=== PATIENT | female | born 1945 | race Caucasian/White ===

== ENCOUNTER 2016-04-30 00:42 | Emergency (ER) | payer OTHER ==
[~2016-04-30] VITALS: Ht 157.5 cm; Wt 66.7 kg
[~2016-04-30 00:42] MED LIST: METOPROLOL TART50 MG PO; NORVASC 5MG TAB5 MG PO; ZETIA10 MG PO
--- NOTE | 2016-04-30 00:55 | ED GENERAL ADULT ---
History of Present Illness General Chief Complaint: General Adult Stated Complaint: HYPERTENSIVE AND IRREGULAR HEARTBEAT Source: patient, old records Exam Limitations: no limitations Vital Signs & Intake/Output Vital Signs & Intake/Output Vital Signs Date Time Temp Pulse Resp B/P Pulse O2 O2 Flow FiO2 Ox Delivery Rate 04/30 0319 97.1 60 18 144/66 100 Room Air 04/30 0051 97.3 67 18 192/88 100 Room Air Allergies Coded Allergies: NO KNOWN ALLERGIES (01/06/14) Reconcile Medications Amlodipine (Norvasc 5MG Tab) 5 MG TABLET 1 TAB PO DAILY BP (Reported) Ezetimibe (Zetia) 10 MG TAB 1 TAB PO DAILY BP (Reported) Metoprolol Tartrate 50 MG TABLET 1 TAB PO BID BP (Reported) Triage Note: PT FROM HOME C/O PALPALTIONS/CP/HTN. PT STATES AROUND 1600 TODAY PT FELT PALPATATIONS. PT CALLED [facility] OR [facility] [employer] [employer] AND DIDNT GET A CALL BACK, PALPATATIONS RESOLVED AND PT WENT TO BED. PT AWOKE AROUND 0000 AND PT STATES SHE FELT PALPATATIONS AGO. PT TO 3 FOR EKG, AWAITING PROVIDER EVAL. Triage Nurses Notes Reviewed? yes HPI: Patient presents for evaluation of heart palpitations that began about 4:00 this afternoon. Patient denies any associated chest pain or shortness of breath. Symptoms seemed to improve but then got worse again prior to arrival. She has had heart palpitations in the past. Past History Travel History Traveled to [place] past 21 day No Medical History Any Pertinent Medical History? see below for history Cardiovascular: hypertension, hyperlipidemia Other Medical Hx: Superficial phlebitis Surgical History Surgical History: non-contributory Psychosocial History What is your primary language Turkmen Tobacco Use: Never used ETOH Use: occasional use Illicit Drug Use: denies illicit drug use Family History Hx Contributory? No Review of Systems Review of Systems Constitutional: Reports: no symptoms. EENTM: Reports: no symptoms. Respiratory: Reports: no symptoms. Cardiovascular: Reports: see HPI. GI: Reports: no symptoms. Genitourinary: Reports: no symptoms. Musculoskeletal: Reports: no symptoms. Skin: Reports: no symptoms. Neurological/Psychological: Reports: no symptoms. Hematologic/Endocrine: Reports: no symptoms. Immunologic/Allergic: Reports: no symptoms. All Other Systems: Reviewed and Negative Physical Exam Physical Exam General Appearance: SEE BELOW Comments: Gen.: Well-nourished, well-developed, no acute respiratory distress. Head: Normocephalic, atraumatic. Eyes: Normal inspection bilaterally Ears: Normal inspection bilaterally Nose: Normal inspection Throat/mouth : Moist mucosa Neck: Supple, full range of motion, no goiter Heart: IRRegular rate and rhythm, no murmurs rubs or gallops Lungs: Clear to auscultation bilaterally with normal air entry Chest: Nontender Back: Normal range of motion Abdomen: Soft, nontender, nondistended, normal bowel sounds Extremities: Normal range of motion grossly, equal radial pulses, no cyanosis, 2 -3+ bilateral pitting edema of the lower extremities Neurologic: Cranial nerves grossly intact, speech is clear Skin: warm and dry Psychiatric: Calm, cooperative, no apparent delusions or hallucinations Core Measures ACS in differential dx? No CVA/TIA Diagnosis: No Severe Sepsis Present: No Septic Shock Present: No Progress Differential Diagnoses I considered the following diagnoses in my evaluation of the patient: Hypertension, atrial fibrillation, sinus tachycardia Plan of Care: Orders Procedure Date/time Status Telemetry/Filer Metal Patterns 04/30 0322 Active THYROID STIMULATING HORMONE 04/30 0128 Complete MAGNESIUM 04/30 0128 Complete CBC WITHOUT DIFFERENTIAL 04/308 Complete BASIC METABOLIC PANEL 04/30 127 Complete EKG 04/30 0044 Active Laboratory Tests 04/30/16 0130: Anion Gap 11, Estimated GFR > 60, BUN/Creatinine Ratio 30.0 H, Glucose 98, Calcium 10.4 H, Magnesium 1.9, TSH 5.570 H, CBC w Diff NO MAN DIFF REQ, RBC 5.70 H, MCV 85.6, MCH 30.1, RDW 14.3, MPV 8.2, Gran % 69.0, Lymphocytes % 22.9, Monocytes % 4.7, Eosinophils % 2.8, Basophils % 0.6, Absolute Granulocytes 4.3, Absolute Lymphocytes 1.4, Absolute Monocytes 0.3, Absolute Eosinophils 0.2, Absolute Basophils 0, PUBS MCHC 35.2 Initial ED EKG: NSR, rate (67), LVH Prior EKG: unchanged Comments: 04/30/2016 3:21:08 AM I have updated Fermin on her test results. She feels well and has no complaint at this time. Her blood pressure has improved substantially. There are no PACs on the monitor at this time. 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 Departure Departure Disposition: HOME OR SELF CARE Condition: Stable Clinical Impression Primary Impression: Hypertension Qualifiers: Hypertension type: essential hypertension Qualified Code: I10 - Essential (primary) hypertension Secondary Impressions: PAC (premature atrial contraction) Referrals: Niesha AG MD (PCP/Family) Departure Forms: Customer Survey General Discharge Information Critical Care Note Critical Care Note Critical Care Time: non-applicable
[2016-04-30 01:37] LABS: ABSOLUTE BASOPHIL COUNT 0 /CUMM (0.0-0.2); ABSOLUTE EOSINOPHIL COUNT 0.2 /CUMM (0.0-0.7); ABSOLUTE GRANULOCYTE CT 4.3 /CUMM (1.4-6.5); ABSOLUTE LYMPH COUNT 1.4 /CUMM (1.2-3.4); ABSOLUTE MONOCYTE COUNT 0.3 /CUMM (0.10-0.60); BASOPHIL % 0.6 % (0.0-2.0); EOSINOPHIL % 2.8 % (0-5); HEMATOCRIT 48.8 % (37-47); MEAN CORPUSCULAR HGB 30.1 PG (27.0-31.0); MEAN CORPUSCULAR HGB CONC 35.2 G/DL (33.0-37.0); MEAN CORPUSCULAR VOLUME 85.6 FL (81.0-99.0); MEAN PLATELET VOLUME 8.2 FL (7.4-10.4); PLATELET COUNT 543 /CUMM (130-400); RBC DISTRIBUTION WIDTH 14.3 % (11.5-14.5); WHITE BLOOD CELL COUNT 6.3 /CUMM (4.8-10.8)
[2016-04-30 03:19] VITALS: BP 144/66
== END 2016-04-30 03:34 ==
LOC: ERH 00:42
PROVIDERS: Emergency Medicine
DX: I10 Essential (primary) hypertension (principal); I49.1 Atrial premature depolarization
CPT/HCPCS: 93005; 93010

== ENCOUNTER 2017-08-03 11:53 | Emergency (ER) | payer OTHER ==
[~2017-08-03] VITALS: Ht 157.5 cm; Wt 65.3 kg
[~2017-08-03 11:53] MED LIST changes: +LOPRESSOR50 M1 PO; -METOPROLOL TART50 MG PO; -NORVASC 5MG TAB5 MG PO; +NORVASC5 M1 PO; +ZETIA10 M1 PO; -ZETIA10 MG PO
[2017-08-03 12:17] LABS: ABSOLUTE BASOPHIL COUNT 0 /CUMM (0.0-0.2); ABSOLUTE EOSINOPHIL COUNT 0.1 /CUMM (0.0-0.7); ABSOLUTE GRANULOCYTE CT 7.2 /CUMM (1.4-6.5); ABSOLUTE LYMPH COUNT 0.6 /CUMM (1.2-3.4); ABSOLUTE MONOCYTE COUNT 0.5 /CUMM (0.10-0.60); BASOPHIL % 0.4 % (0.0-2.0); EOSINOPHIL % 1.7 % (0-5); HEMATOCRIT 48.2 % (37-47); MEAN CORPUSCULAR HGB 28.4 PG (27.0-31.0); MEAN CORPUSCULAR HGB CONC 33.1 G/DL (33.0-37.0); MEAN CORPUSCULAR VOLUME 85.9 FL (81.0-99.0); MEAN PLATELET VOLUME 8.1 FL (7.4-10.4); RBC DISTRIBUTION WIDTH 14.9 % (11.5-14.5); WHITE BLOOD CELL COUNT 8.5 /CUMM (4.8-10.8)
[2017-08-03 12:36] LABS: GRANULOCYTE % 84.9 % (42.2-75.2); PLATELET COUNT 525 /CUMM (130-400)
--- NOTE | 2017-08-03 12:38 | ED GI/GU/ABDOMINAL COMPLAINT ---
History of Present Illness General Chief Complaint: General Adult Stated Complaint: PER PT BLOODY STOOLS Source: patient Exam Limitations: no limitations Vital Signs & Intake/Output Vital Signs & Intake/Output Vital Signs Date Time Temp Pulse Resp B/P B/P Pulse O2 O2 Flow FiO2 Mean Ox Delivery Rate 08/03 1510 97.5 74 18 154/70 97 Room Air Room Air 08/03 1408 97.4 75 18 157/64 97 Room Air Room Air 08/03 1155 97.8 71 18 173/71 96 Room Air Allergies Coded Allergies: NO KNOWN ALLERGIES (NONE 01/12/17) Reconcile Medications Amlodipine Besylate (Norvasc) 5 MG TABLET 1 TAB PO 1500 BP (Reported) Ciprofloxacin HCl 500 MG TABLET 1 TAB PO BID Colitis Ezetimibe (Zetia) 10 MG TABLET 1 TAB PO QPM CHOLESTEROL (Reported) Metoprolol Tartrate (Lopressor) 50 MG TABLET 1 TAB PO BID BP (Reported) Metronidazole (Flagyl) 500 MG TABLET 1 TAB PO TID Colitis Triage Note: 72 Y/O FEMALE C/O DIARRHEA OVERNIGHT AND BLOODY STOOLS THIS MORNING. REPORTS INTERMITTENT ABDOMINAL CRAMPING. DENIES N/V BUT FEELS "QUEASEY". IS NOT ON ANY BLOOD THINNERS TAKEN FOR BLOOD DRAW Triage Nurses Notes Reviewed? yes ? N Is pt currently ? No HPI: 72-year-old female presents to emergency department complaining of abdominal cramping since early this morning. She had multiple episodes of watery diarrhea around 2 AM. She woke up again at 5 AM this morning with more abdominal cramping and diarrhea. She also noticed bright red blood in her stool. Patient states it looked mucousy. Reports she has had a history of this in the past, unsure of her diagnosis at that time. She has a history of diverticulosis. States her belly is not particularly painful just feels crampy. Her only previous abdominal surgery was a stone removal at the [facility] over 20 years ago. Denies any nausea or vomiting. No chest pain or shortness of breath. No recent fever or chills. She has been eating normally. No hematuria or dysuria. (Steven SIMMS,Myke) Past History Travel History Traveled to [place] past 21 day No Medical History Any Pertinent Medical History? see below for history Neurological: NONE EENT: NONE Cardiovascular: hypertension, hyperlipidemia, "MAYBE PAC'S" Respiratory: NONE Gastrointestinal: NONE Hepatic: NONE Renal: NONE Musculoskeletal: NONE Psychiatric: NONE Endocrine: NONE Blood Disorders: NONE Cancer(s): NONE Other Medical Hx: Superficial phlebitis Surgical History Surgical History: non-contributory Psychosocial History What is your primary language Swedish Tobacco Use: Never used Family History Hx Contributory? No (Myke Harris PA-C) Review of Systems Review of Systems Constitutional: Reports: no symptoms. EENTM: Reports: no symptoms. Respiratory: Reports: no symptoms. Cardiovascular: Reports: no symptoms. GI: Reports: see HPI, abdominal pain, bloating, diarrhea, bloody stool. Denies: constipation, nausea, vomiting. Genitourinary: Reports: no symptoms. Musculoskeletal: Reports: no symptoms. Skin: Reports: no symptoms. Neurological/Psychological: Reports: no symptoms. Hematologic/Endocrine: Reports: no symptoms. Immunologic/Allergic: Reports: no symptoms. All Other Systems: Reviewed and Negative (Myke Harris PA-C) Physical Exam Physical Exam General Appearance: well developed/nourished, no apparent distress, alert, awake Head: atraumatic, normal appearance Eyes: Bilateral: normal appearance, PERRL, EOMI. Ears, Nose, Throat, Mouth: hearing grossly normal, moist mucous membrane Neck: normal inspection, supple, full range of motion Respiratory: normal breath sounds, chest non-tender, no respiratory distress, lungs clear Cardiovascular: regular rate/rhythm Gastrointestinal: BS normal, Abdomen is soft and non tender, non distended. No masses or organomegaly. Extremities: normal range of motion Neurologic/Psych: no motor/sensory deficits, awake, alert, oriented x 3, normal gait Skin: intact Core Measures ACS in differential dx? No Sepsis Present: No Sepsis Focused Exam Completed? No (Myke Harris PA-C) Progress Differential Diagnosis: AAA, appendicitis, bowel obstruction, diverticulitis, hemorrhoids, ischemic bowel, inflamm bowel dis, kidney stone, SBO, UTI/pyelo Plan of Care: Orders Procedure Date/time Status CULTURE,STOOL 08/03 1442 Active C.DIFFICILE 08/03 1442 Active Add-on Test (ER Only) 08/03 1240 Active URINALYSIS 08/03 1233 Complete LIPASE 08/03 1200 Complete LACTIC ACID 08/03 1157 Complete COMPREHENSIVE METABOLIC PANEL 08/03 1157 Complete CBC WITHOUT DIFFERENTIAL 08/03 1157 Complete Laboratory Tests 08/03/17 1457: Lactic Acid Cancelled 08/03/17 1343: Urine Color YEL, Urine Clarity CLEAR, Urine pH 6.5, Ur Specific [place] <= 1.005 , Urine Protein NEG, Urine Ketones NEG, Urine Nitrite NEG, Urine Bilirubin NEG, Urine Urobilinogen 0.2, Ur Leukocyte Esterase TRACE H, Ur Microscopic SEDIMENT EXAMINED, Urine RBC 1-3, Urine WBC 1-3 H, Hyaline Casts RARE H, Urine Hemoglobin NEG, Urine Glucose NEG 08/03/17 1233: Lipase Cancelled 08/03/17 1200: Anion Gap 9, Estimated GFR > 60, BUN/Creatinine Ratio 18.6, Glucose 105 H, Lactic Acid 0.8, Calcium 9.8, Total Bilirubin 0.7, AST 29, ALT 31, Alkaline Phosphatase 69, Total Protein 7.2, Albumin 4.3, Globulin 2.9, Albumin/Globulin Ratio 1.5, Lipase 37, CBC w Diff NO MAN DIFF REQ, RBC 5.60 H, MCV 85.9, MCH 28.4, MCHC 33.1, RDW 14.9 H, MPV 8.1, Gran % 84.9 H, Lymphocytes % 7.2 L, Monocytes % 5.8, Eosinophils % 1.7, Basophils % 0.4, Absolute Granulocytes 7.2 H, Absolute Lymphocytes 0.6 L, Absolute Monocytes 0.5, Absolute Eosinophils 0.1 , Absolute Basophils 0 Microbiology 08/03 144 STOOL: Clostridium difficile Toxin A & B - ORD 08/03 144 STOOL: Stool Culture - ORD Diagnostic Imaging: Viewed by Me: CT Scan. Discussed w/RAD: CT Scan. Radiology Impression: PATIENT: ROXY PASTOR PRESENT AGE: 72 PATIENT ACCOUNT NO: [id number] : 43 LOCATION: [facility] ORDERING PHYSICIAN: Myke Harris PA-C SERVICE DATE: 08/03/17 EXAM TYPE: CAT - CT ABD & PELVIS W IV CONTRAST EXAMINATION: CT ABDOMEN AND PELVIS WITH CONTRAST CLINICAL INFORMATION: Lower abdominal pain, cramping, diarrhea and blood in stool. COMPARISON: Previous CT June 2011. TECHNIQUE: Multidetector volumetric imaging was performed of the abdomen and pelvis following IV administration of 95 mL of Optiray 320 intravenous contrast. Sagittal and coronal reformatted images were obtained on the technologist's workstation. DLP: 272 mGy-cm FINDINGS : LUNG BASES: The visualized lung bases are unremarkable. LIVER, GALLBLADDER, AND BILIARY TREE: The liver is normal in size, shape, and attenuation. No focal hepatic lesion or biliary ductal dilatation is present. The gallbladder is unremarkable with no evidence of radiopaque gallstones, gallbladder wall thickening, or obvious pericholecystic inflammatory changes. PANCREAS: Unremarkable. SPLEEN: Unremarkable. ADRENAL GLANDS: Unremarkable. KIDNEYS AND URETERS: The left kidney is slightly small with renal cortical thinning. There is mild left hydronephrosis. There are 2 left renal cysts, largest measuring 2 cm in the lower pole. This is unchanged from previous exam. No left ureteral dilatation is seen. The right kidney is normal-appearing. BLADDER: Unremarkable. GASTROINTESTINAL TRACT: There is evidence of diverticulosis. There is a long segment wall thickening of the left colon and sigmoid colon. This is more suggestive of colitis than diverticulitis. Small and large bowel is otherwise unremarkable. The appendix is unremarkable. ABDOMINAL WALL: There is a small umbilical hernia containing fat. LYMPH NODES: There are no enlarged lymph nodes. There is no ascites. VASCULAR: There is evidence of atherosclerotic disease. No aneurysm is seen. PELVIC VISCERA: There are calcifications in the uterus probably representing calcified fibroids. Adnexa are unremarkable. OSSEOUS STRUCTURES: There are degenerative changes of the spine and at the hip joints. IMPRESSION: Diverticulosis. Long segment wall thickening of the left colon and sigmoid colon more suggestive of colitis than diverticulitis. Left renal cortical thinning, hydronephrosis and renal cysts similar to 2012 exam. Calcifications in the uterus probably representing calcified fibroids. DICTATED BY: Birdie Ma MD DATE/TIME DICTATED:08/03/171319 WELFARE SERVICE AIDE: ALBERTA DATE/TIME TRANSCRIBED:08/03/171319 CONFIDENTIAL, DO NOT COPY WITHOUT APPROPRIATE AUTHORIZATION. <Electronically signed in Other Vendor System> SIGNED BY: Birdie Ma MD 08/03/17 1419 Initial ED EKG: none Comments: Update @ 14:45: Spoke with Dr. Victoria software validation technician for pts GI Dr. Melara. He recommends obtaining stool C&S and C. difficile samples. Recommendes placing patient on Cipro and Flagyl. Follow-up in the office in 2-3 days. Patient is very well-appearing presenting with watery diarrhea which started this morning. She then had a few episodes of bright red bloody diarrhea. On exam her abdomen is soft nontender. She is afebrile and very well-appearing. She is in no distress. Her lab work is overall nonactionable. CT scan results show diverticulosis with suspected colitis. Attempted to obtain stool samples although patient was unable to provide them. I did discuss this with Dr. Schmidt who recommended starting the patient on Cipro and Flagyl. She will follow-up with her GI doctor as an outpatient. I have low concern for acute abdomen, AAA, SBO, ischemic bowel. (Steven SIMMS,Myke) Departure Departure Disposition: HOME OR SELF CARE Condition: Stable Clinical Impression Primary Impression: Colitis Secondary Impressions: Diverticulosis Referrals: Vangie GARZA,Giovanny Croft (PCP/Family) Additional Instructions: Your CT scan shows colitis and diverticulosis. Take antibiotics as prescribed. You should follow-up with your GI doctor this week. Drink plenty of fluids. Monitor your symptoms and return immediately with any new or worsening symptoms. Departure Forms: Customer Survey General Discharge Information Prescriptions: Current Visit Scripts Ciprofloxacin HCl 1 TAB PO BID #20 TAB Metronidazole (Flagyl) 1 TAB PO TID #30 TAB (Myke Harris PA-C) PA/WING COMMANDER Co-Sign Statement Statement: ED Attending supervision documentation- x I saw and evaluated the patient. I have also reviewed all the pertinent lab results and diagnostic results. I agree with the findings and the plan of care as documented in the PA's/WING COMMANDER's documentation. [] I have reviewed the ED Record and agree with the PA's/WING COMMANDER's documentation. [] Additions or exceptions (if any) to the PAs/WING COMMANDER's note and plan are summarized below: [] (Lisa GARZA,Noe)
--- NOTE | 2017-08-03 14:19 | CT SCAN REPORT ---
EXAMINATION: CT ABDOMEN AND PELVIS WITH CONTRAST CLINICAL INFORMATION: Lower abdominal pain, cramping, diarrhea and blood in stool. COMPARISON: Previous CT June 2011. TECHNIQUE: Multidetector volumetric imaging was performed of the abdomen and pelvis following IV administration of 95 mL of Optiray 320 intravenous contrast. Sagittal and coronal reformatted images were obtained on the technologist's workstation. DLP: 272 mGy-cm FINDINGS: LUNG BASES: The visualized lung bases are unremarkable. LIVER, GALLBLADDER, AND BILIARY TREE: The liver is normal in size, shape, and attenuation. No focal hepatic lesion or biliary ductal dilatation is present. The gallbladder is unremarkable with no evidence of radiopaque gallstones, gallbladder wall thickening, or obvious pericholecystic inflammatory changes. PANCREAS: Unremarkable. SPLEEN: Unremarkable. ADRENAL GLANDS: Unremarkable. KIDNEYS AND URETERS: The left kidney is slightly small with renal cortical thinning. There is mild left hydronephrosis. There are 2 left renal cysts, largest measuring 2 cm in the lower pole. This is unchanged from previous exam. No left ureteral dilatation is seen. The right kidney is normal-appearing. BLADDER: Unremarkable. GASTROINTESTINAL TRACT: There is evidence of diverticulosis. There is a long segment wall thickening of the left colon and sigmoid colon. This is more suggestive of colitis than diverticulitis. Small and large bowel is otherwise unremarkable. The appendix is unremarkable. ABDOMINAL WALL: There is a small umbilical hernia containing fat. LYMPH NODES: There are no enlarged lymph nodes. There is no ascites. VASCULAR: There is evidence of atherosclerotic disease. No aneurysm is seen. PELVIC VISCERA: There are calcifications in the uterus probably representing calcified fibroids. Adnexa are unremarkable. OSSEOUS STRUCTURES: There are degenerative changes of the spine and at the hip joints. IMPRESSION: Diverticulosis. Long segment wall thickening of the left colon and sigmoid colon more suggestive of colitis than diverticulitis. Left renal cortical thinning, hydronephrosis and renal cysts similar to 2012 exam. Calcifications in the uterus probably representing calcified fibroids.
[2017-08-03] MEDS ORDERED: FLAGYL500 MG PO (14:50)
[2017-08-03] MEDS ORDERED: CIPROFLOXACIN500 M2 PO (14:50)
[2017-08-03 15:10] VITALS: BP 154/70
== END 2017-08-03 16:09 ==
LOC: ERH 11:53
PROVIDERS: Emergency Medicine
DX: K52.9 Noninfective gastroenteritis and colitis, unspecified (principal); K57.92 Diverticulitis of intestine, part unspecified, without perforation or abscess without bleeding
CPT/HCPCS: 74177; 81001; 87015; 87045; 87899; 87899-59